=== PATIENT | male | born 1970 | race Caucasian/White ===

== ENCOUNTER → 2021-10-16 09:17 | Outpatient (BNVA) | payer BC, SELFPAY | PROVIDERS: Family Provider General Practice; PCP Family Medicine; Visit Provider Family Medicine | DX: Z00.00 Encounter for general adult medical examination without abnormal findings (principal) | CPT/HCPCS: 80053; 80061 ==

== ENCOUNTER 2022-03-27 11:15 | Emergency (ER) | payer OTHER, BC, SELFPAY ==
[2022-03-27] VITALS (30 sets, daily range): BP systolic 121–174; BP diastolic 67–99; PULSE 48–72; RESP 7–25; O2SAT 96–100; BMI 25.0
--- NOTE | 2022-03-27 11:24 | XR_ITS ---
WS: [id number] Right hand, 3 views, 03/27/2022 Clinical Data: trauma Comparison: None. Findings: There is a comminuted displaced fracture of the distal phalanx of the right forearm. There is soft tissue swelling.The remainder of the hand is normal. XR/XR hand RT min 3V* [id number] Impression: Severely comminuted fracture of the distal phalanx of the right thumb.
--- NOTE | 2022-03-27 11:30 | W.ED.TRAUMA ---
HPI - Trauma General: Chief Complaint: Extremity Injury, Upper Stated Complaint: Fingers cut by saw Time Seen by Provider: 03/27/22 11:24 Source: patient Mode of arrival: ambulatory History of Present Illness: 51-year-old male was working with a router and got his hand caught in the router he has an injury to his dominant right hand on the thumb and the index finger when he arrived his right index finger is flail and appears blanched. With repositioning and revascularize his quickly. He is unsure of his last tetanus shot he has previously had injuries to the right thumb. 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 Onset (ago): minute(s) Loss of Consciousness: no Location - Extremities: Right: hand Severity: severe Associated symptoms: Reports no associated symptoms; Denies abdominal pain, chest pain, chills, fever(s), nausea or vomiting Review of Systems Const: Denies: fever(s), chills, body aches, change in appetite, fatigue or malaise ENMT: Denies: throat pain, ear or mastoid pain, nasal discharge or nasal congestion Card: Denies: chest pain, edema, dyspnea on exertion or orthopnea Resp: Denies: dyspnea, productive cough or non-productive cough GI: Denies: abdominal pain, nausea, vomiting, hematemesis, coffee ground emesis, diarrhea, constipation, bloating, hematochezia or melena : Denies: flank pain, difficulty urinating, dysuria, urinary frequency or urinary urgency Skin/Breast: Denies: rash or pruritus [facility] ED PFSH: Medical History (Updated 03/27/22 @ 14:58 by Charlie Castellanos DO) No significant past medical history Social History (Updated 03/27/22 @ 14:51 by Charlie Castellanos DO) Smoking and tobacco status: never smoked Alcohol intake: current Physical Exam Const: COMMON NORMALS: no acute distress GENERAL APPEARANCE: cooperative and comfortable ORIENTATION/CONSCIOUSNESS: Yes awake, Yes oriented to person, Yes oriented to place and Yes oriented to time HENMT: COMMON NORMALS: normocephalic, atraumatic and hearing grossly normal bilaterally HEAD & SCALP: normocephalic and atraumatic Resp: COMMON NORMALS: normal respiratory effort, No retractions, No use of accessory muscles and clear to auscultation bilaterally AUSCULTATION: clear to auscultation bilaterally Cardio: COMMON NORMALS: regular rate, regular rhythm and No murmurs present (Cardio) RATE: regular rate RHYTHM: regular rhythm Extremity: OTHER: Significant injury to the palmar surface of the right distal forearm. At the proximal interphalangeal joint there is disassociation of the joint knee digit is essentially flail. When he first examined him it was pale distally however on the distal digit was repositioned and supported in a straightened position the distal digit revascularized and he was able to feel sharp touch of a needle prick on the dorsum of the index finger. He is also able to feel sharp touch distally on the thumb. Neuro: SENSORIUM/ORIENTATION: Yes oriented to person, Yes oriented to place and Yes oriented to time Skin: COMMON NORMALS: no rashes or lesions noted GENERAL SKIN EXAM: no rashes or lesions noted Procedures Orthopedic Fracture Reduction Fracture #1: Time Out Performed: Yes Side: right Fracture Reduction Location: finger (Thumb and index finger) Analgesia: nerve block Technique: direct manipulation Orthopedic Splinting/Casting Injury #1: Side: right Upper Extremity Injury Location: finger (Index) Upper Extremity Immobilizer: volar splint Additional Comments: Simple aluminum splint used to straighten the right index finger which reestablished blood flow tissue had good blanching good sensation. Thumb and index finger were then wrapped in a bulky wet dressing to protect. Course Vital Signs: Vital signs: Vital Signs Pulse Rate 56 L 03/27/22 14:40 Respiratory Rate 25 H 03/27/22 11:36 Blood Pressure 174/99 03/27/22 14:40 Pulse Oximetry 100 03/27/22 14:40 Oxygen Delivery Me thod 03/27/22 14:40 MDM - Trauma Medical Decision Making Significant hand trauma in his dominant hand. None of our orthopedic surgeons manage this degree of hand injury especially in a dominant hand in a patient who is use of his hands is critical to his job. Discussed with Dr. Dhillon at [facility] he accepted patient in transfer will transfer ED to ED Dr. Falcon has agreed to accept patient. We did reduce and splint the index finger which reestablished blood flow a loose bulky wet dressing was applied to protect both the thumb and index finger. Tetanus updated, given Ancef and pain medications. Medical Records I reviewed the patient's medical records. Lab Data I reviewed the patient's lab results. Radiology Impressions Hand X-Ray 03/27/22 11:24 Impression: Severely comminuted fracture of the distal phalanx of the right thumb. Discharge Plan Discharge Patient Disposition: Transfer to ED Clinical Impression: Hand trauma Condition: Stable Prescriptions: No Action No Known Home Medications Referrals: Jayson Fagan DO [Primary Care Provider] - Coding Level of Care Code ED Test Preparation Tutor for Chg Fwd Exam Detailed
[2022-03-27] MEDS: ondansetron 2 mg/ML SDV 2 mL 4 MG IVP (11:31)
[2022-03-27] MEDS: fentaNYL 50 mcg/mL INJ 2mL 100 MCG IVP (11:36)
[2022-03-27] MEDS: ceFAZolin 1,000 MG in sodium chloride 0.9% (plus) 50 ML 100 MG IV (11:39)
[2022-03-27] MEDS: tetanus-dipt-pertussis 0.5 mL SDV IM (11:40)
--- NOTE | 2022-03-27 11:56 | PC.PHAR ---
pt states he takes no rx or otc meds-ext med history shows last filled nitro 0.1mg/hr patch on 01/12/22 30d/s pt states that was for a tear he had in his shoulder and doesnt use any longer
[2022-03-27] MEDS: morphine 4 mg/mL SDV 1 mL IVP (15:16)
== END 2022-03-27 15:10 ==
PROVIDERS: Emergency Provider Family Medicine; PCP Family Medicine
DX: S62.521A Displaced fracture of distal phalanx of right thumb, initial encounter for closed fracture (principal); S62.620A Displaced fracture of middle phalanx of right index finger, initial encounter for closed fracture; S62.610A Displaced fracture of proximal phalanx of right index finger, initial encounter for closed fracture; W31.89XA Contact with other specified machinery, initial encounter
CPT/HCPCS: 26725; 26755; 73130; 90471; 90715; 96365; 96375; 96376; 99285; 99291; J0690; J2270; J2405; J3010; J3490